=== PATIENT | female | born 1970 | race Caucasian/White ===

== ENCOUNTER 2016-04-11 09:48 | Day surgery (SDC) | payer OTHER ==
[~2016-04-11] VITALS: Ht 170.2 cm; Wt 80.3 kg
[~2016-04-11 09:48] MED LIST: LR 1,000 ML IV SCH; SING10TA32 PO
[2016-04-11] MEDS ORDERED: METHYLENE BLUE 1% 10 ML VIAL (Q9968) As Ordered ONE (10:08)
[2016-04-11 10:46] LABS: MEAN CORPUSCULAR HEMOGLOBIN 29.9 pg (27.0-33.0); MEAN CORPUSCULAR HGB CONC 34.9 g/dl (32.0-36.5); MEAN CORPUSCULAR VOLUME 85.7 fl (80.0-96.0); RED CELL DISTRIBUTION WIDTH 14.2 % (11.5-14.5); WHITE BLOOD COUNT 4.9 K/mm3 (4.0-10.0)
[2016-04-11] MEDS ORDERED: SCOPOLAMINE 1.5 MG TRANSDERMAL TOP ONE (11:30)
[2016-04-11] MEDS ORDERED: LR 1,000 ML IV SCH ×2 (11:30→17:15)
[2016-04-11] MEDS ORDERED: VASOPRESSIN INJ 20 UNITS/ML VIAL As Ordered ONE (12:03)
[2016-04-11] MEDS ORDERED: LIDOCAINE 2% INJ 100 MG/5 ML SYRINGE As Ordered ONE (12:31)
[2016-04-11] MEDS ORDERED: MIDAZOLAM INJ 2 MG/2 ML VIAL (J2250) As Ordered ONE (12:31)
[2016-04-11] MEDS ORDERED: ROCURONIUM BROMIDE 50 MG/5 ML VIAL As Ordered ONE (12:31)
[2016-04-11] MEDS ORDERED: NEOSTIGMINE 1MG/ML 5 ML SYRINGE (J2710) As Ordered ONE (12:31)
[2016-04-11] MEDS ORDERED: KETOROLAC 60 MG/2 ML VIAL (J1885) As Ordered ONE (12:31)
[2016-04-11] MEDS ORDERED: ONDANSETRON 4MG/2ML VIAL (J2405) As Ordered ONE (12:31)
[2016-04-11] MEDS ORDERED: fentaNYL 100 MCG/2 ML INJECTION (J3010) As Ordered ONE ×2 (12:31→15:56)
[2016-04-11] MEDS ORDERED: MORPHINE 10 MG/ML 1ML VIAL As Ordered ONE (12:31)
[2016-04-11] MEDS ORDERED: GLYCOPYRROLATE INJ 0.2 MG/ML 2 ML VIAL As Ordered ONE (12:31)
[2016-04-11] MEDS ORDERED: PROPOFOL 200 MG/20 ML VIAL As Ordered ONE ×2 (12:31→16:18)
[2016-04-11] MEDS ORDERED: dexameTHASONE 4 MG/ML 1ML VIAL (J1100) As Ordered ONE (12:31)
[2016-04-11] MEDS ORDERED: PHENYLephrine HCL 500 MCG/5 ML (100MCG/ML) SYRINGE (J2370) As Ordered ONE (16:07)
[2016-04-11] MEDS ORDERED: MORPHINE PCA 1MG/ML 100ML CADD As Ordered ONE (17:02)
[2016-04-11] MEDS ORDERED: MORPHINE 2 MG/ML 1ML SYRINGE IV PRN (17:15)
[2016-04-11] MEDS ORDERED: IBUPROFEN 600 MG TAB PO PRN (17:15)
[2016-04-11] MEDS ORDERED: NALOXONE INJ 0.4 MG/1 ML VIAL (J2310) IV PRN (17:15)
[2016-04-11] MEDS ORDERED: fentaNYL 100 MCG/2 ML INJECTION (J3010) IV PRN (17:15)
[2016-04-11] MEDS ORDERED: ONDANSETRON 4MG/2ML VIAL (J2405) IV PRN (17:15)
[2016-04-11] MEDS ORDERED: NALBUPHINE HCL 10 MG/ML AMP (J2300) IV PRN (17:15)
[2016-04-11] MEDS ORDERED: EPIDURAL/PCA KEYS XX PRN (17:15)
[2016-04-11] MEDS ORDERED: diphenhydrAMINE INJ 50MG/ML VIAL (J1200) IV PRN (17:15)
[2016-04-11] MEDS ORDERED: MORPHINE PCA 1MG/ML 100ML CADD IV PRN (17:15)
[2016-04-11 18:00] VITALS: BP 119/59
[2016-04-11] MEDS: LR 1,000 ML IV SCH ×2 (18:16→23:42)
[2016-04-11 18:30] VITALS: BP 122/54
[2016-04-11 19:30] VITALS: BP 110/55
[2016-04-11 20:30] VITALS: BP 119/56
[2016-04-11 21:30] VITALS: BP 128/60
[2016-04-11 22:30] VITALS: BP 102/16
[2016-04-12 02:33] VITALS: BP 105/58
[2016-04-12] MEDS: NORCO, ANEXSIA 5/325MG TABLET (HYDROcodone/ACETAMINOPHEN) PO PRN ×2 (05:52→10:40)
[2016-04-12 06:04] VITALS: BP 110/58
[2016-04-12 07:29] LABS: MEAN CORPUSCULAR HEMOGLOBIN 29.6 pg (27.0-33.0); MEAN CORPUSCULAR HGB CONC 33.8 g/dl (32.0-36.5); MEAN CORPUSCULAR VOLUME 87.6 fl (80.0-96.0); RED CELL DISTRIBUTION WIDTH 14.3 % (11.5-14.5); WHITE BLOOD COUNT 6.8 K/mm3 (4.0-10.0)
[2016-04-12 08:00] VITALS: BP 98/54
[2016-04-12] MEDS ORDERED: IBUP600T26 PO (09:21)
[2016-04-12] MEDS ORDERED: NORC5TAB PO (09:21)
--- NOTE | 2016-04-12 20:56 | RO ---
DATE OF PROCEDURE: 04/11/2016 PREPROCEDURE DIAGNOSES: Menorrhagia, dysmenorrhea, symptomatic fibroids, failed ablation, and stress urinary incontinence with urethral hypermobility. POSTPROCEDURE DIAGNOSES: Menorrhagia, dysmenorrhea, symptomatic fibroids, failed ablation, and stress urinary incontinence with urethral hypermobility. Additional diagnosis of raised, erythematous bladder lesions, fairly small sized. These are documented with photographs. PROCEDURE: Robotic-assisted hysterectomy with bilateral salpingectomy and mid urethral sling, Soylx, with cystourethroscopy and bladder biopsy. SURGEON: Katy Gamboa MD DINKEY [employer]OR OPERATOR: Natasha Troncoso NP ANESTHESIA: General endotracheal anesthesia. BRIEF DESCRIPTION OF PROCEDURE AND FINDINGS: Disha was brought to the operating room where sufficient general endotracheal anesthesia was induced. She was prepped, draped and positioned in the usual sterile fashion. The uterine manipulator placed after the uterus had been sounded to 12. Varela with the ability to backfill was placed as well. Attention was then turned to the abdomen where a semilunar incision was made below the umbilicus along the line of her previous surgical scar. Sharp and blunt dissection were continued through the subcutaneous tissues to the level of the rectus fascia which was elevated with Tayo clamps, transversely incised and the peritoneum entered under direct visualization using open laparoscopic technique. The S retractors were used to visualize the peritoneal cavity and then the Sanchez cannula was placed in an open laparoscopic technique with CO2 insufflation then begun. After adequate CO2 insufflation, the peritoneal cavity was visualized. There were normal shiny peritoneal surfaces throughout. There were no excrescences, ascites nor exudate, but there was an enlarged uterus, which was protruding from the pelvis and above the pelvic rim without manipulation. It was readily visible through the intestines without Tredelenburg. With Trendelenburg we could see that there was scarring from her previous tubal and obvious fibroids, but no other significant lesions. Two left side and one right sided port were placed for the robot, these were 8 mm. With [address] in place, the robot was docked and we turned to working through the robot. I did all of the robotic work. Using the bipolar cautery, the pedicle to the fallopian tubes, at least the remnants of her fallopian tubes were carefully cauterized and then transected with the operative scissors. Having freed the fallopian tubes from the ovarian pedicle, we then transected the utero-ovarian suspensory ligaments and then the round ligaments. Having freed the ovaries and the tubes, leaving the ovaries of course in the patient and taking the tubes with the fibroid uterus, we then switched out to the 30 degree down robotic scope, which was then used to dissect carefully the bladder flap anteriorly, working across the anterior aspect of the uterus and then dissecting the broad ligament, and then dissected the posterior aspect of the broad ligament. With assistance, we were able to visualize the fibroid uterus had in fact displaced the ureters somewhat further away from the field rather than closer. We were able to carefully isolate the uterine vasculature and cauterize it. There were multiple extra blood supply, but with care we were able to progress through this and control the blood supply. We then made an anterior colpotomy and worked laterally through the uterine vasculature. We then carefully rotated the uterus, carefully evaluated where the bowel was, and were able to complete the colpotomy and the transection of the vagina along the vaginal cuff to free the uterus and cervix and the fallopian tubes from the patient. With the uterus free, we then proceeded to work vaginally, obviously this enlarged uterus, which eventually was weighed at 620 grams was too large to just simply deliver whole. So we brought the uterus down with traction on the cervix, removed the uterine manipulator, placed the tenaculum on the cervix, and then carefully performed myomectomies vaginally until we could then deliver the uterus and detached fallopian tubes. Again, it was weighed in the operating room at 620 grams. We then used the robot to close the vaginal cuff, using V-Loc suture with good approximation and hemostasis resulting. Then having completed that portion of the procedure, brought the patient out of Trendelenburg, placed her legs higher in the stirrups, and while Natasha Troncoso closed the abdominal wounds, I began the work for the Solyx mid urethral sling. I injected dilated vasopressin vaginally, carefully made a vaginal incision, used the Strully scissors to dissect it out laterally for the initially trocar arms, and then using the anatomical landmarks of the patient as is typical and with the legs high enough to have good access here, placed first the right and then the left side arm of the Solyx with good feel of the anchor and then proceeded to cystoscopy. With cystoscopy, you could see that there was no evidence in the lower bladder, at the bladder neck injury in the locations where the mini sling, which progresses in the direction of the TVOT, of course did not go through and through, there was no evidence of injury to the bladder. There was no evidence in the urethra of injury to the bladder. There were normal jets of urine from the ureters. The trigone itself was reassuring in appearance, but over the dome of the bladder there were several patchy erythematous areas. At first I thought that this might be just bruising from the case, but evaluation of this carefully showed that these are raised lesions. So she had erythematous raised lesions or hypertrophy of the bladder wall but has not had a chronic indwelling Varela or any chronic irritants. I could not see any chronic stones or any other cause for this and having a lesion of unknown significance, we went ahead and made the decision to do a small biopsy and these were fairly small lesions. These little patches, the largest was just over 1 cm based on comparison to the tools and the others were about 0.5 cm in diameter, so I went ahead and used cystoscopy tools to incise the bladder mucosa with the scissors and then just used the punch biopsy to go ahead and complete the biopsy of the bladder wall with a small sample obtained. With such a small sample, as is photographed in the operative photos, there really is not any need for cautery to the bladder wall for this, but we did send that to pathology separately. Having completed that and the dressings were placed on the abdomen, I did place a 2 inch vaginal packing as well just to help control after a prolonged case for this patient. Then the procedure was ended. Estimated blood loss for the procedure was about 150 mL despite the size of the uterus. Fluid replacement was Crystalloid. COMPLICATIONS: None. CONDITION AND DISPOSITION: Disha tolerated the procedure well and was recovering in the recovery room in good condition.
== END 2016-04-12 10:55 | disposition home or self-care (01) ==
LOC: M SDC 09:48 → M PED 18:01 → M SDC 04-12 10:55
PROVIDERS: ATTEND Obstetrics & Gynecology
DX: D25.9 Leiomyoma of uterus, unspecified (principal); N32.9 Bladder disorder, unspecified; N92.0 Excessive and frequent menstruation with regular cycle; N94.6 Dysmenorrhea, unspecified; N39.3 Stress incontinence (female) (male); N36.41 Hypermobility of urethra; D64.9 Anemia, unspecified; Z79.899 Other long term (current) drug therapy; Z91.040 Latex allergy status
CPT/HCPCS: 36415; 52204; 57288; 58145; 58571; 85027; 86850; 86900; 86901; 88305; 88309; 96374; C1771; J0690; J1100; J1200; J1885; J2250; J2370; J2405; J2710; J3010

== ENCOUNTER → 2021-02-05 | Outpatient (REF) | payer BC, OTHER ==
[~2021-02-05] MED LIST changes: +IBUP-1022 PO; -LR 1,000 ML IV SCH; +NORC1TAB7 PO
[2021-02-05 18:02] LABS: BASO % 0.6 % (0.0-1.0); EOS # 0.1 10^3/uL (0.0-0.5); EOS % 0.9 % (0.0-3.0); HEMATOCRIT 43.3 % (36.0-47.0); HEMOGLOBIN 14.5 g/dl (12.0-15.5); LYMPH # 1.1 10^3/uL (1.5-5.0); LYMPH % 21.1 % (24.0-44.0); MEAN CORPUSCULAR HEMOGLOBIN 29.2 pg (27.0-33.0); MEAN CORPUSCULAR HGB CONC 33.5 g/dl (32.0-36.5); MEAN CORPUSCULAR VOLUME 87.3 fl (80.0-96.0); MONO # 0.3 10^3/uL (0.0-0.8); NEUTROPHILS # 3.8 10^3/uL (1.5-8.5); NEUTROPHILS % 71.2 % (36.0-66.0); PLATELET COUNT, AUTOMATED 245 10^3/uL (150-450); RED BLOOD COUNT 4.96 10^6/uL (4.00-5.40); WHITE BLOOD COUNT 5.3 10^3/uL (4.0-10.0)
[2021-02-05 18:05] LABS: APPEARANCE, URINE CLEAR (CLEAR); BACTERIA, URINE AUTO NEGATIVE (NEGATIVE); BILIRUBIN, URINE AUTO NEGATIVE (NEGATIVE); BLOOD, URINE BLOOD NEGATIVE (NEGATIVE); COLOR, URINE YELLOW (YELLOW); GLUCOSE, URINE (UA) AUTO NEGATIVE (NEGATIVE); KETONE, URINE AUTO TRACE mg/dL (NEGATIVE); LEUKOCYTE ESTERASE, URINE AUTO 1+ (NEGATIVE); NITRITE, URINE AUTO NEGATIVE (NEGATIVE); PROTEIN, URINE AUTO NEGATIVE (NEGATIVE); RBC, URINE AUTO 2 /HPF (0-3); SPECIFIC GRAVITY URINE AUTO 1.006 (1.002-1.035); SQUAMOUS EPITHELIAL CELL UR AU 1 /HPF (0-6); UROBILINOGEN, URINE AUTO 0.2 mg/dL (0.0-2.0); WBC, URINE AUTO 2 /HPF (0-3)
[2021-02-05 18:13] LABS: BLOOD UREA NITROGEN 11 MG/DL (7-18); CALCIUM LEVEL 9.4 MG/DL (8.5-10.1); CARBON DIOXIDE LEVEL 28 MEQ/L (21-32); CHLORIDE LEVEL 105 MEQ/L (98-107); CHOLESTEROL LEVEL 184 MG/DL (<200); CHOLESTEROL RISK RATIO 4.088 (<5); CREATININE FOR GFR 0.73 MG/DL (0.55-1.30); GLOMERULAR FILTRATION RATE > 60.0 (>51); GLUCOSE, FASTING 89 MG/DL (70-100); HDL CHOLESTEROL 45 MG/DL (>40); LDL CHOLESTEROL 119 MG/DL (<100); NON-HDL-C 139 MG/DL; POTASSIUM SERUM 4.3 MEQ/L (3.5-5.1); SODIUM LEVEL 139 MEQ/L (136-145); TRIGLYCERIDES LEVEL 102 MG/DL (<150)
== END ==
LOC: M LABDRAWC 15:56
PROVIDERS: ATTEND Family Medicine
DX: Z00.00 Encounter for general adult medical examination without abnormal findings (principal); Z12.39 Encounter for other screening for malignant neoplasm of breast; G47.00 Insomnia, unspecified; N95.1 Menopausal and female climacteric states; E66.9 Obesity, unspecified; M79.671 Pain in right foot; R30.0 Dysuria

== ENCOUNTER → 2022-07-22 | Outpatient (REF) | payer BC ==
[~2022-07-22] MED LIST changes: +MONT-5 PO; -SING10TA32 PO
[2022-07-22 18:32] LABS: APPEARANCE, URINE HAZY (CLEAR); BACTERIA, URINE AUTO NEGATIVE (NEGATIVE); BILIRUBIN, URINE AUTO NEGATIVE (NEGATIVE); BLOOD, URINE BLOOD NEGATIVE (NEGATIVE); COLOR, URINE YELLOW (YELLOW); GLUCOSE, URINE (UA) AUTO NEGATIVE (NEGATIVE); KETONE, URINE AUTO TRACE mg/dL (NEGATIVE); LEUKOCYTE ESTERASE, URINE AUTO 3+ (NEGATIVE); MUCUS, URINE SMALL (NEGATIVE); NITRITE, URINE AUTO NEGATIVE (NEGATIVE); PROTEIN, URINE AUTO NEGATIVE (NEGATIVE); RBC, URINE AUTO 1 /HPF (0-3); SPECIFIC GRAVITY URINE AUTO 1.017 (1.002-1.035); SQUAMOUS EPITHELIAL CELL UR AU 1 /HPF (0-6); UROBILINOGEN, URINE AUTO 0.2 mg/dL (0.0-2.0); WBC, URINE AUTO 7 /HPF (0-3)
== END ==
LOC: M LABDRAWC 16:58
PROVIDERS: ATTEND Urology
DX: N39.0 Urinary tract infection, site not specified (principal)